=== PATIENT | male | born 1950 | race Caucasian/White ===

== ENCOUNTER → 2016-05-01 | Outpatient (CLI) | payer MEDICARE, BC ==
[2016-05-01 07:25] VITALS: O2SAT 92
--- NOTE | 2016-05-02 08:39 | RSPPFT ---
DATE OF PROCEDURE: 05/01/16 COMMENTS: Spirometry with FVC of 3.3 predicted 4.7, FEV1 of 2.4 predicted 3.2, FEV1/FVC ratio at 72% predicted 67%. Air trapping is present with RV at 3.9 predicted 2.6. TLC is 6.9 predicted 7.3. DLCO is within the predicted range. IMPRESSION: On the basis of the above, patient has a mild obstructive lung defect with the FEF 25-75 at 1.7 predicted 2.8. There is some response to acutely inhaled bronchodilator.
== END ==
LOC: HRSP 07:16
PROVIDERS: ATTEND Family Medicine
DX: R05 Cough (principal)
CPT/HCPCS: 94060; 94726; 94729